=== PATIENT | female | born 2000 | race Hispanic/Latino ===

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

== ENCOUNTER 2019-05-19 05:34 | Emergency (ER) | payer OTHER, SELFPAY ==
[2019-05-19] MEDS ORDERED: ACETAMINOPHEN EXTRA STRENGTH 500 MG TABLET ONE (06:03)
== END 2019-05-19 08:07 | disposition home or self-care (01) ==
LOC: EDH 05:34
DX: B34.9 Viral infection, unspecified (principal); E11.9 Type 2 diabetes mellitus without complications; I10 Essential (primary) hypertension; E07.9 Disorder of thyroid, unspecified
CPT/HCPCS: 71046; 87804; 87880

== ENCOUNTER 2023-01-04 17:32 | Emergency (ER) | payer OTHER, SELFPAY ==
[~2023-01-04] VITALS: Ht 160 cm; Wt 158.8 kg
[2023-01-04 23:16] VITALS: BP 158/95; PULSE 92; RESP 16; O2SAT 98
[2023-01-04] MEDS ORDERED: ACETAMINOPHEN 500 MG TABLET PO ONE (23:30)
[2023-01-04] MEDS ORDERED: CYCL-309 PO (23:48)
[2023-01-04] MEDS ORDERED: NAPR-1180 PO (23:48)
== END 2023-01-04 23:56 | disposition home or self-care (01) ==
LOC: EDH 17:32
DX: M54.2 Cervicalgia (principal); M25.511 Pain in right shoulder; M54.6 Pain in thoracic spine; V89.2XXA Person injured in unspecified motor-vehicle accident, traffic, initial encounter; Y93.89 Activity, other specified; Y92.89 Other specified places as the place of occurrence of the external cause; Y99.8 Other external cause status
CPT/HCPCS: 72040; 72072; 73030